=== PATIENT | female | born 1960 | race African-American/Black ===

== ENCOUNTER 2017-01-18 18:43 | Emergency (ER) | payer MEDICARE, MEDICAID ==
[~2017-01-18] VITALS: Ht 142.2 cm; Wt 46.0 kg
[2017-01-18 18:54] VITALS: BP 112/82
== END 2017-01-19 | disposition left against medical advice (07) ==
LOC: ER 23:51
DX: R07.9 Chest pain, unspecified (principal); Z53.21 Procedure and treatment not carried out due to patient leaving prior to being seen by health care provider
CPT/HCPCS: 93005

== ENCOUNTER → 2017-09-18 | Outpatient (CLI) | payer MEDICARE, MEDICAID | END | disposition home or self-care (01) | LOC: MAMMO 09:36 | PROVIDERS: ATTEND Internal Medicine | DX: Z12.31 Encounter for screening mammogram for malignant neoplasm of breast (principal) | CPT/HCPCS: 77067 ==